=== PATIENT | male | born 1965 | race Two or more races ===

== ENCOUNTER 2021-02-04 08:10 | Emergency (ER) | payer OTHER ==
[~2021-02-04] VITALS: Ht 180.3 cm; Wt 104.3 kg
[2021-02-04] MEDS ORDERED: TOPROL XL25 M1 PO (08:25)
[2021-02-04] MEDS ORDERED: ZITHROMAX500 MG PO (10:46)
[2021-02-04] MEDS ORDERED: KETO10TA2 PO (10:46)
== END 2021-02-04 14:00 ==
LOC: ER 08:10
DX: J02.9 Acute pharyngitis, unspecified (principal); Z03.818 Encounter for observation for suspected exposure to other biological agents ruled out